=== PATIENT | male | born 1975 | race Caucasian/White ===

== ENCOUNTER 2021-03-09 16:36 | Inpatient (IN) | payer SELFPAY ==
[2021-03-09 17:04] VITALS: BP 124/78; PULSE 77; RESP 18; TEMP 37.1; O2SAT 94; BMI 26.6
[2021-03-09] MEDS: buprenorphine-naloxone 4-1 mg Film 2 EACH SUBLINGUAL (18:25)
[2021-03-09] MEDS: nicotine 2 mg Gum BUCCAL (19:11)
[2021-03-09 20:28] VITALS: BP 103/68; PULSE 125; RESP 18; TEMP 36.5; O2SAT 97
[2021-03-10 06:00] VITALS: BP 103/68; PULSE 125; RESP 18; TEMP 36.5; O2SAT 97
[2021-03-10] MEDS: buprenorphine-naloxone 4-1 mg Film 2 EACH SUBLINGUAL ×2 (08:31→17:25)
[2021-03-10 14:00] VITALS: BP 121/76; PULSE 87; RESP 18; TEMP 36.5; O2SAT 94
--- NOTE | 2021-03-10 16:31 | P.HP_ITS ---
Providers/Chief Complaint Admitting Physician: Mert Ball MD Chief Complaint: SI HPI NPU History of Present Illness Aurelio Griffith is a 45 year old male with with depression, opiate abuse, and recent overdose transferred from the [facility] ED after being medically stabilized and cleared. They obtained a 96-hour hold order prior to transfer. The ED note states: Chief complaint: Patient left the [facility] and drove himself to the ED with C/O depression and suicidal ideation with plans to cut or hang himself. History of present illness: Patient reports that he was DX with depression and ADHD as a child. Patient has had to cope with depression and has had a substance abuse problem for the majority of his life. The patient was most recently seen at [facility] but could not afford to get his medication filled. The patient was able to get assistance in getting his medications filled yesterday, 03/08/2021. The patient had been clean since September 07, 2020, until recently, when he relapsed. The patient reports that he is suicidal, with a plan to cut himself or hang himself. The patient needs to become psychiatrically stable before he can further focus on anything else. The patient scored as high risk on the C-SSRS. The 96-hour hold order petition, completed by Gifty Mendez and dated 03/08/2021, states: Patient arrived at ER with suicidal ideation and plans to either cut himself or hang himself. Patient has a history of substance issues as well. Patient does not appear to be able to make good judgments at this time. Patient requires a higher level of care. Per the crisis evaluation at [facility]: Patient reports that he was born and raised in [place], [place] by both of his biological parents. The patient reports that his parents are still living but are no longer . The patient has 4 sisters and 3 brothers. The patient reports that he occasionally talks to his family, but that he has burned a lot of bridges. The patient reports that he has been and 3 times and has 7 children. One of his children, is only a couple of weeks old and is currently in our NICU, here at [facility]. The patient's fianc? is here staying with the baby. Other records from [facility] state that the patient has had withdrawal symptoms that included anxiety, confusion, hallucinations, mood swings, nausea, restlessness, sweating, vomiting. He would like to go to rehab again, but states that the program he was just at had people actively using drugs. He says he has served time [facility]. He denies history of psychological trauma. Patient reports that he did not intentionally try to overdose. He says that he was trying to get high, and he was not exactly familiar with what he was taking. He feels that someone must have mixed something in that he was not expecting. He denies that he told the ED that he was feeling suicidal. He says he has had suicidal ideation off and on but not recently. Meds NPU Home Medications Medication Instructions Recorded Confirmed Last Taken Type quetiapine 200 mg PO BEDTIME #14 tab 03/11/21 Unknown Rx Allergies Allergy/AdvReac Type Severity Reaction Status Date / Time No Known Drug Allergies Allergy Unknown Verified 03/09/21 17:03 Mental Status Exam MSE Comments: I met with the patient in the dayroom, and he was dressed in hospital scrubs and appropriately groomed. He was irritable and testy, moderately cooperative, interactive, and made begrudgingly eye contact. Some psychomotor agitation. Speech is at a regular rate and rhythm, mildly t pressured. Alert, oriented to person, place, time, situation. Attention and concentration were intact. Memory is intact. Mood is anxious. Affect is anxious and irritable. Thought process is fairly concrete. Thought content: Denies auditory and visual hallucinations. No delusions or paranoia are noted. No current suicidal ideation, and no homicidal ideation. Fund of knowledge is intact to exam. Language is intact to exam. Insight and judgment appear to be chronically on the low and. Impulse control is probably chronically impaired as well. Vitals/I&O/Wt Last Vital Signs Temp 97.7 F 03/10/21 06:00 Pulse 125 H 03/10/21 06:00 Resp 18 03/10/21 06:00 BP 103/68 03/10/21 06:00 Pulse Ox 97 03/10/21 06:00 Weight last 48 hrs Weight 81.647 kg Weight 81.647 kg A&P Assessment and plan (1) Persistent adjustment disorder with mixed disturbance of emotions and conduct: Status: Acute (2) Opiate dependence, continuous: Status: Acute Additional A&P Information RECOMMENDATION AND PLAN: 1. Continue current medication. 2. Continue every 15 minute checks for safety. 3. Encourage individual, group and milieu therapies. 4. Encourage sober living treatment after discharge at the highest level of care to which he is willing to commit. Involuntary Hold Information 96 Hour Hold: 96 Hour Involuntary Admission: Yes 96 Hour Hold Ending Date: 03/16/21 96 Hour Hold Ending Time: 16:40 Attestations NPU Medical Necessity Statement*: Psychiatric hospitalization is medically necessary to prevent access to lethal means, to reevaluate medication, and to coordinate a safe discharge. Patient will be in the hospital for over 2 midnights. Likely length of stay is 3 to 5 days. Coding Level of Care Code Acute Industrial Psychologist for Liza Ingram Diagnoses Persistent adjustment disorder with mixed disturbance of emotions and conduct F43.25 Opiate dependence, continuous F11.20
[2021-03-10] MEDS: nicotine 2 mg Gum BUCCAL (17:51)
[2021-03-10] MEDS: acetaminophen 325 mg Tablet 650 MG PO (21:42)
[2021-03-10] MEDS: quetiapine 100 mg Tablet 200 MG PO (21:43)
[2021-03-10 22:00] VITALS: BP 121/76; PULSE 87; RESP 18; TEMP 36.5; O2SAT 94
[2021-03-11 05:18] VITALS: BP 121/76; PULSE 87; RESP 18; TEMP 36.5; O2SAT 94
[2021-03-11 06:13] VITALS: BP 116/79; PULSE 97; RESP 17; TEMP 36.6; O2SAT 96
[2021-03-11] MEDS: buprenorphine-naloxone 4-1 mg Film 2 EACH SUBLINGUAL (09:36)
[2021-03-11 11:10] VITALS: BP 116/79; PULSE 97; RESP 17; TEMP 36.6; O2SAT 96
--- NOTE | 2021-03-11 12:39 | PM.NDC ---
Diagnoses at Discharge Discharge Diagnosis (1) Opiate dependence, continuous: Status: Acute (2) Persistent adjustment disorder with mixed disturbance of emotions and conduct: Status: Acute Reason for Visit Reason for Visit: SI Brief History: Aurelio Griffith is a 45 year old male with with depression, opiate abuse, and recent overdose transferred from the [facility] ED after being medically stabilized and cleared. They obtained a 96-hour hold order prior to transfer. The ED note states: Chief complaint: Patient left the [facility] and drove himself to the ED with C/O depression and suicidal ideation with plans to cut or hang himself. History of present illness: Patient reports that he was DX with depression and ADHD as a child. Patient has had to cope with depression and has had a substance abuse problem for the majority of his life. The patient was most recently seen at [facility] but could not afford to get his medication filled. The patient was able to get assistance in getting his medications filled yesterday, 03/08/2021. The patient had been clean since September 07, 2020, until recently, when he relapsed. The patient reports that he is suicidal, with a plan to cut himself or hang himself. The patient needs to become psychiatrically stable before he can further focus on anything else. The patient scored as high risk on the C-SSRS. The 96-hour hold order petition, completed by Gifty Mendez and dated 03/08/2021, states: Patient arrived at ER with suicidal ideation and plans to either cut himself or hang himself. Patient has a history of substance issues as well. Patient does not appear to be able to make good judgments at this time. Patient requires a higher level of care. Per the crisis evaluation at [facility]: Patient reports that he was born and raised in [place], [place] by both of his biological parents. The patient reports that his parents are still living but are no longer . The patient has 4 sisters and 3 brothers. The patient reports that he occasionally talks to his family, but that he has burned a lot of bridges. The patient reports that he has been and 3 times and has 7 children. One of his children, is only a couple of weeks old and is currently in our NICU, here at [facility]. The patient's fianc? is here staying with the baby. Other records from [facility] state that the patient has had withdrawal symptoms that included anxiety, confusion, hallucinations, mood swings, nausea, restlessness, sweating, vomiting. He would like to go to rehab again, but states that the program he was just at had people actively using drugs. He says he has [facility]. He denies history of psychological trauma. Patient reports that he did not intentionally try to overdose. He says that he was trying to get high, and he was not exactly familiar with what he was taking. He feels that someone must have mixed something in that he was not expecting. He denies that he told the ED that he was feeling suicidal. He says he has had suicidal ideation off and on but not recently. Hospital Course Hospital Course The patient was admitted to the neuropsychiatric unit for definitive treatment of these issues. On the unit he slowly acclimated to the individual, group and milieu therapies. There were some mild dysphoric symptoms present initially which resolved with the medication being restarted. He was receptive to treatment team recommendations and showed modest improvement and was able to contract for safety prior to discharge. During the hospitalization, patient had routine laboratory studies which were within normal limits except for few outliers. Additionally there was a general medical evaluation which was also within normal limits and revealed no new acute processes. Discharge Summary: At the time of discharge, psychosis and lethality were denied. It appears that he had had mostly substance seeking behaviors, rather than suicidal behaviors prior to admission. Mood and anxiety were well managed. Patient endorsed a plan to avoid all drugs of abuse and follow-up with the aftercare recommendations of the treatment team. Patient was evaluated and deemed to be absent credible lethality, and had achieved the maximum benefit from an inpatient hospitalization, so was discharged. Involuntary Hold Information 96 Hour Hold: 96 Hour Involuntary Admission: Yes 96 Hour Hold Ending Date: 03/16/21 96 Hour Hold Ending Time: 16:40 Mental Status Exam MSE Comments: I met with the patient in the dayroom, and he was dressed in hospital scrubs and appropriately groomed. He was irritable and testy, moderately cooperative, interactive, and made fair eye contact. Colmer. Speech is at a regular rate and rhythm. Alert, oriented to person, place, time, situation. Attention and concentration were intact. Memory is intact. Mood is improved. Affect is anxious. Thought process is fairly concrete. Thought content: Denies auditory and visual hallucinations. No delusions or paranoia are noted. No current suicidal ideation, and no homicidal ideation. Fund of knowledge is intact to exam. Language is intact to exam. Insight and judgment appear to be chronically on the low and. Impulse control is probably chronically impaired as well. Discharge Data Vitals: Last Vital Signs Temp 97.9 F 03/11/21 11:10 Pulse 97 03/11/21 11:10 Resp 17 03/11/21 11:10 BP 116/79 03/11/21 11:10 Pulse Ox 96 03/11/21 11:10 Discharge Plan Discharge Patient Disposition: Home Condition: Stable Prescriptions: New quetiapine 100 mg Tablet 200 mg PO BEDTIME Qty: 14 RF: 0 Discharge Orders: Discharge Order (Routine); Ordered 03/11/21 Ordered By: Mert Ball Discharge Diet: Usual diet Discharge Activity: Resume usual activity Patient Instructions: Opioid Safety Discharge Attestations NPU Time Spent in Discharge Care*: less than 30 min Specific Discharge Activities: Specific discharge activities: educating patient, discussing with case assembler/social workers/dc planners, documenting/other paperwork and evaluating patient/reviewing data Status at Discharge: Cognitive status at discharge: cognitively intact, Behavioral status at discharge: cooperative, Functional status at discharge: independent ambulation Overall status at discharge: patient is back to baseline Coding Level of Care Code Acute g DC note Diagnoses Opiate dependence, continuous F11.20 Persistent adjustment disorder with mixed disturbance of emotions and conduct F43.25
== END 2021-03-11 13:25 | disposition home or self-care (01) | DRG 882 ==
PROVIDERS: Admitting Provider Psychiatry & Neurology Child & Adolescent Psychiatry; Visit Provider Psychiatry & Neurology Child & Adolescent Psychiatry
DX: F43.25 Adjustment disorder with mixed disturbance of emotions and conduct (principal); F32.9 Major depressive disorder, single episode, unspecified; F11.24 Opioid dependence with opioid-induced mood disorder
CPT/HCPCS: J0573